=== PATIENT | female | born 1975 | race Caucasian/White ===

== ENCOUNTER → 2016-08-12 | Outpatient (CLI) | payer OTHER ==
--- NOTE | ~2016-08-12 | MY11 ---
[facility] A Service of [facility] RADIOLOGY TEXT RESULTS PATIENT: NAM EDOUARD LOCATION: [facility] : 77 UNIT #: [id number] AGE: [address]: Jose Luis Canada MD SEX: F ORDER DR: [id number] [address] [address] [id number] O MR#: [id number] Acc #: [id number] NAME: NAM EDOUARD : 1975 SEX: F STUDY DATE/TIME: 08/12/2016 8:46 UNIT: SRAD ROOM: STUDY DESCRIPTION: MY Mammogram Screening [place] Attending Physician: Jose Luis Canada M.D. Referring Physician: Jose Luis Canada M.D. Ordering Physician: Jose Luis Canada M.D. Primary Care Physician: Jose Luis Canada M.D. MEDICAL IMAGING REPORT This report is preliminary unless electronic signature is present. EXAM Bilateral digital screening mammogram with CAD 08/12/2016 INDICATION 41-year-old female for routine screening. No reported problems. No personal or family history of breast cancer. No surgeries. TECHNIQUE CC and MLO views were obtained and reviewed with an FDA-approved CAD device. No comparisons. This is her baseline study. FINDINGS Breast parenchyma is composed of scattered fibroglandular densities. The pattern is symmetric. There is no dominant nodule, mass or suspicious cluster of microcalcifications. There is dense breast tissue in the upper outer aspects of both breasts. Intramammary nodes anterior to the pectoralis muscle on the right. IMPRESSION Negative screening mammogram. 1 year followup recommended. Patients over the age of 40 are entered into a reminder system with target due date for the next mammogram. A result letter will also be sent to the patient. BIRADS: 1 Negative Dictated by... John Tanner M.D. THIS IS AN ELECTRONICALLY VERIFIED REPORT [facility] A Service [facility] RADIOLOGY TEXT RESULTS PATIENT: NAM EDOUARD LOCATION: [facility] : 77 UNIT #: [id number] AGE: [address]: Jose Luis Canada MD SEX: F ORDER DR: John Tanner M.D. at 08/12/2016 4:59 PM PERCY/shona TD: 08/12/2016 11:06 JOB #: [id number] MEDICAL IMAGING REPORT Page 1 of 1
== END | disposition home or self-care (01) ==
LOC: SRAD 08:18
DX: Z12.31 Encounter for screening mammogram for malignant neoplasm of breast (principal)
CPT/HCPCS: G0202